=== PATIENT | male | born 1965 | race Caucasian/White ===

== ENCOUNTER 2019-07-27 07:40 | Inpatient (IN) | payer OTHER ==
[2019-07-23 10:49] LABS: BASOPHILS # (AUTO) 0.1 X10'3 (0-0.2); BASOPHILS % (AUTO) 0.8 % (0-1); EOSINOPHILS # (AUTO) 0.1 X10'3 (0-0.9); EOSINOPHILS % (AUTO) 1.4 % (0-6); LYMPHOCYTES # (AUTO) 2.3 X10'3 (1.1-4.8); LYMPHOCYTES % (AUTO) 30.3 % (21-51); MEAN CORPUSCULAR HEMOGLOBIN 30.1 PG (27.0-31.0); MEAN CORPUSCULAR HGB CONC 34.8 g/dL (33.0-36.5); MEAN CORPUSCULAR VOLUME 86.6 FL (78-98); MEAN PLATELET VOLUME 7.6 FL (7.4-10.4); MONOCYTES # (AUTO) 0.6 X10'3 (0-0.9); MONOCYTES % (AUTO) 7.9 % (2-12); NEUTROPHILS # (AUTO) 4.5 X10'3 (1.8-7.7); NEUTROPHILS % (AUTO) 59.6 % (42-75); PRE OP HEMATOCRIT 44.3 % (42.0-52.0); PRE OP HEMOGLOBIN 15.4 g/dL (14.0-17.9); PRE OP PLATELET COUNT 208 X10'3 (140-440); RED BLOOD COUNT 5.12 X10'6 (4.70-6.10); RED CELL DISTRIBUTION WIDTH 13.6 % (11.5-14.5)
[2019-07-23 10:59] LABS: ALBUMIN/GLOBULIN RATIO 1.1 (1.1-1.5); ALKALINE PHOSPHATASE 105 IU/L (46-116); BLOOD UREA NITROGEN 15 MG/DL (7-18); CHLORIDE 106 MMOL/L (99-107); CREATININE 0.79 MG/DL (0.60-1.10); PRE OP ALT 27 U/L (30-65); PRE OP ANION GAP 8 (8-16); PRE OP AST 13 U/L (10-37); PRE OP BILIRUB, TOTAL 0.2 MG/DL (0.0-1.0); PRE OP GLUCOSE 104 MG/DL (70-104); PRE OP POTASSIUM 4.3 MMOL/L (3.4-5.1); PRE OP SODIUM 141 MMOL/L (135-145); TOTAL CARBON DIOXIDE 26.8 MMOL/L (24-32); TOTAL PROTEIN 7.7 G/DL (6.4-8.2); eGFR > 90 ML/MIN
[2019-07-27] VITALS (18 sets, daily range): BP systolic 76–142; BP diastolic 55–87
[~2019-07-27] VITALS: Ht 172.7 cm; Wt 133.6 kg
[~2019-07-27 07:40] MED LIST: DOCUMENT DATE & TIME OF BETA-BLOCKER PO ONE; HYDR-4353 PO; LISI-600 PO; METO-384 PO; VARE0.5T PO; ceFAZolin/D5W- 1GM premix 50 ML IV ONE; cefazolin/dext.iso 2gm/50ml 50 ML IV ONE; famotidine 20mg tablet PO ONE; ringers solution, lacted 1,000 ML IV SCH; tranexamic acid inj. 1,350 MG in normal saline 100ml IV soln 100 ML IV ONE; vancomycin inj 1,500 MG in normal saline 300ml IV soln IV ONE
[2019-07-27] MEDS ORDERED: ringers solution, lacted 1,000 ML IV SCH (10:19)
[2019-07-27] MEDS ORDERED: proCHLORperazine 10 MG/2 ml inj IV PRN (10:20)
[2019-07-27] MEDS ORDERED: morphine 4 MG/ML inj SYRINge IV PRN ×2 (10:20)
[2019-07-27] MEDS ORDERED: meperidine/PF 25mg/ml syringe IV PRN ×3 (10:20)
[2019-07-27] MEDS ORDERED: ondansetron/PF 4mg/2ml inj IV PRN ×2 (10:20→16:20)
[2019-07-27] MEDS ORDERED: ROPIVAcaine 0.5% (5mg/ml) 30ml vial ONE ×2 (10:46→12:26)
[2019-07-27] MEDS ORDERED: ketorolac trometh. 30mg/ml inj. ONE (10:46)
[2019-07-27] MEDS ORDERED: tranexamic acid inj. 1,350 MG in normal saline 100ml IV soln 100 ML IV ONE (11:05)
[2019-07-27] MEDS ORDERED: fentaNYL /PF 50mcg/ml 5ml ampule ONE (11:53)
[2019-07-27] MEDS ORDERED: MIDAZolam 5mg/5ml vial ONE (11:53)
[2019-07-27] MEDS ORDERED: LIDOcaine 1%/PF 5ML 10 MG/ML VIAL ONE ×5 (11:54→17:36)
[2019-07-27] MEDS ORDERED: propofol inj 20 ML IV ONE (11:54)
[2019-07-27] MEDS ORDERED: dexamethasone sod phosphate 4mg/ml inj. ONE (13:29)
[2019-07-27] MEDS ORDERED: rocuronium 10mg/ml inj IV ONE (13:30)
[2019-07-27] MEDS ORDERED: ondansetron/PF 4mg/2ml inj ONE (13:30)
[2019-07-27] MEDS: ROPIVAcaine 0.2%/PF PAIN PUMP 550 ML INTERSCALE SCH ×2 (15:54→18:53)
--- NOTE | 2019-07-27 16:01 | NUR ---
ON [place] IS BEING INFUSED A PAIN BLOCK AND NOT AN IVF INFUSION JUST TO CLARIFY THE PHARMACY DOCUMENTATION ON EMAR SHOULD STATE ITS A PAIN BLOCK NOT IVF
[2019-07-27] MEDS ORDERED: bisacodyl 10mg suppository rectal RC PRN (16:20)
[2019-07-27] MEDS ORDERED: HYDROmorphone inj. 0.5 MG/0.5 ML DISP.SYRIN IV PRN (16:20)
[2019-07-27] MEDS ORDERED: magnesium hydroxide 30ml (MOM) UD suspension PO PRN (16:20)
[2019-07-27] MEDS ORDERED: oxyCODONE IR 5mg (immed. release) tablet PO PRN (16:20)
[2019-07-27] MEDS ORDERED: diphenhydrAMINE 25mg capsule PO PRN ×2 (16:20)
[2019-07-27] MEDS ORDERED: HYDROmorphone 1 mg/ml syringe IV PRN (16:20)
[2019-07-27] MEDS ORDERED: acetaminophen 325mg tablet PO PRN (16:20)
[2019-07-27] MEDS ORDERED: acetaminophen 1,000mg/100ml IV 100 ML IV ONE (16:35)
--- NOTE | 2019-07-27 16:47 | NUR ---
report received from Vinod in recovery
--- NOTE | 2019-07-27 16:50 | NUR ---
PATIENT A&OX4, DENIES PAIN, V/S WNL, NEUROVASCULAR CHECKS INTACT, 18G PIV LUE, SCD ON, DRESSING TO RIGHT SHOULDER CDI ELEVATED WITH ICEBAG APPLIED AND SLING ON. . PATIENT TAKEN TO ORTHO WITH ALL BELONGINGS AND HOOKED UP TO MONITORS IN ROOM AND REPORT GIVEN TO RN WHO HAS TAKEN OVER PATIENT CARE.
--- NOTE | 2019-07-27 18:25 | NUR ---
Problems reprioritized. Patient report given, questions answered & plan of care reviewed with Josie GONZALEZ.
[2019-07-27] MEDS: oxyCODONE IR 5mg (immed. release) tablet PO PRN (18:38)
[2019-07-27] MEDS ORDERED: TRANEXAMIC ACID IV ONE (19:20)
[2019-07-27] MEDS ORDERED: NORMAL SALINE IV ONE (19:20)
[2019-07-27] MEDS ORDERED: vancomycin/NS 1 GM ADD-VANTAGE 250 ML IV SCH (20:00)
[2019-07-27] MEDS: potassium cl 20mEq in 1/2 NS 1,000 ML IV SCH (20:38)
[2019-07-27] MEDS: varenicline tartrate 0.5mg tablet PO SCH (20:40)
[2019-07-27] MEDS: acetaminophen 325mg tablet PO SCH (20:41)
[2019-07-27] MEDS: sennosides 8.6mg tablet PO SCH (20:42)
[2019-07-28] MEDS: ceFAZolin 1GM/D5W- ADD-VANTAGE 50 ML IV SCH ×2 (00:25→08:05)
[2019-07-28] MEDS: oxyCODONE IR 5mg (immed. release) tablet PO PRN ×4 (00:27→20:52)
[2019-07-28] MEDS: acetaminophen 325mg tablet PO SCH ×4 (01:18→20:52)
[2019-07-28 02:00] VITALS: BP 136/75
[2019-07-28] MEDS ORDERED: metoprolol succinate 25mg (24-HOUR) SR. Tablet PO ONE (05:35)
[2019-07-28] MEDS ORDERED: diazepam inj 5 MG/ML inj. IV ONE (05:55)
[2019-07-28] MEDS: potassium cl 20mEq in 1/2 NS 1,000 ML IV SCH ×2 (05:58→08:18)
[2019-07-28 06:00] VITALS: BP 143/81
[2019-07-28 06:04] LABS: BASOPHILS % (AUTO) 0.3 % (0-1); EOSINOPHILS % (AUTO) 0 % (0-6); HEMATOCRIT 39.4 % (42.0-52.0); HEMOGLOBIN 13.7 g/dl (14.0-17.9); LYMPHOCYTES % (AUTO) 7.2 % (21-51); MEAN CORPUSCULAR HEMOGLOBIN 30.1 PG (27.0-31.0); MEAN CORPUSCULAR HGB CONC 34.8 g/dL (33.0-36.5); MEAN CORPUSCULAR VOLUME 86.3 FL (78-98); MEAN PLATELET VOLUME 7.3 FL (7.4-10.4); MONOCYTES # (AUTO) 0.7 X10'3 (0-0.9); MONOCYTES % (AUTO) 4.9 % (2-12); NEUTROPHILS # (AUTO) 12.3 X10'3 (1.8-7.7); NEUTROPHILS % (AUTO) 87.6 % (42-75); PLATELET COUNT 223 X10'3 (140-440); RED BLOOD COUNT 4.56 X10'6 (4.70-6.10); RED CELL DISTRIBUTION WIDTH 13.9 % (11.5-14.5)
[2019-07-28] MEDS: metoprolol succinate 25mg (24-HOUR) SR. Tablet PO SCH (06:25)
--- NOTE | 2019-07-28 06:31 | NUR ---
Problems reprioritized. Patient report given, questions answered & plan of care reviewed with LISA SUE.
[2019-07-28 06:48] LABS: ANION GAP 10 (8-16); CHLORIDE 105 MMOL/L (99-107); POTASSIUM 4.1 MMOL/L (3.5-5.1); SODIUM 139 MMOL/L (135-145); TOTAL CARBON DIOXIDE 23.6 MMOL/L (24-32)
[2019-07-28] MEDS: lisinopril 20mg tablet PO SCH (07:58)
[2019-07-28] MEDS: varenicline tartrate 0.5mg tablet PO SCH ×2 (08:05→20:51)
[2019-07-28] MEDS ORDERED: aspirin 325mg tablet PO SCH (08:30)
[2019-07-28 10:00] VITALS: BP 134/79
--- NOTE | 2019-07-28 11:44 | NUR ---
Joint replacement consult: Pt/family seen by JOSE for written/verbal high protein ed w/ RD contact information provided. Pt agrees to double proteins TIDWM; dietary notified. Pt endorses good appetite w/ some gas currently. LBM 07/26. Will continue to monitor. Addendum: 07/28/19 at [address] Amended: Links added.
--- NOTE | 2019-07-28 11:49 | NUR ---
Student documentation: I have reviewed all interventions, assessments performed and [facility] Medication Administration: For this medication-pass time frame, all medication were reviewed, dispensed, administered and documented per hospital policy [facility].
[2019-07-28 14:00] VITALS: BP 144/79
[2019-07-28] MEDS ORDERED: bisacodyl 5mg tablet.DR PO PRN (16:30)
[2019-07-28 18:00] VITALS: BP 165/83
--- NOTE | 2019-07-28 18:13 | NUR ---
Problems reprioritized. Patient report given, questions answered & plan of care reviewed with Josie GONZALEZ.
--- NOTE | 2019-07-28 18:22 | NUR ---
Patient in room ORTHO 4024. I have received report from LISA SUE and had the opportunity to ask questions and assume patient care.
[2019-07-28] MEDS: sennosides 8.6mg tablet PO SCH (21:00)
[2019-07-28 22:10] VITALS: BP 128/70
--- NOTE | 2019-07-29 01:06 | NUR ---
PT REFUSED PAIN MED AND SCHEDULED TYLENOL
[2019-07-29] MEDS: acetaminophen 325mg tablet PO SCH ×2 (02:00→07:55)
[2019-07-29] MEDS: oxyCODONE IR 5mg (immed. release) tablet PO PRN ×2 (04:23→08:46)
[2019-07-29] MEDS: ROPIVAcaine 0.2%/PF PAIN PUMP 550 ML INTERSCALE SCH ×2 (04:24→09:01)
[2019-07-29 05:43] LABS: BASOPHILS # (AUTO) 0.1 X10'3 (0-0.2); BASOPHILS % (AUTO) 0.7 % (0-1); EOSINOPHILS # (AUTO) 0.1 X10'3 (0-0.9); EOSINOPHILS % (AUTO) 0.6 % (0-6); HEMATOCRIT 41.3 % (42.0-52.0); HEMOGLOBIN 14.2 g/dl (14.0-17.9); LYMPHOCYTES # (AUTO) 3.2 X10'3 (1.1-4.8); LYMPHOCYTES % (AUTO) 26.4 % (21-51); MEAN CORPUSCULAR HGB CONC 34.3 g/dL (33.0-36.5); MEAN CORPUSCULAR VOLUME 87.5 FL (78-98); MEAN PLATELET VOLUME 7.6 FL (7.4-10.4); MONOCYTES # (AUTO) 0.9 X10'3 (0-0.9); MONOCYTES % (AUTO) 7.1 % (2-12); NEUTROPHILS # (AUTO) 7.9 X10'3 (1.8-7.7); NEUTROPHILS % (AUTO) 65.2 % (42-75); PLATELET COUNT 213 X10'3 (140-440); RED BLOOD COUNT 4.72 X10'6 (4.70-6.10); RED CELL DISTRIBUTION WIDTH 13.8 % (11.5-14.5); WHITE BLOOD COUNT 12.1 X10'3 (4.5-11.0)
[2019-07-29 06:00] VITALS: BP 150/90
--- NOTE | 2019-07-29 06:21 | NUR ---
Problems reprioritized. Patient report given, questions answered & plan of care reviewed with LISA SUE.
--- NOTE | 2019-07-29 06:36 | NUR ---
Patient in room ORTHO 4024. I have received report from Josie GONZALEZ and had the opportunity to ask questions and assume patient care.
[2019-07-29] MEDS: lisinopril 20mg tablet PO SCH (07:55)
[2019-07-29] MEDS: metoprolol succinate 25mg (24-HOUR) SR. Tablet PO SCH (07:55)
[2019-07-29] MEDS: varenicline tartrate 0.5mg tablet PO SCH (07:55)
[2019-07-29 09:25] VITALS: BP 127/79
[2019-07-29] MEDS ORDERED: acetaminophen 325mg tablet PO PRN (16:20)
== END 2019-07-29 09:30 | disposition home or self-care (01) | DRG 483 ==
LOC: PAS IN 07:40 → EDSTATUS 11:00 → ORTHO 4S 16:50
PROVIDERS: ADMIT Orthopaedic Surgery; ATTEND Orthopaedic Surgery
PROC: 0LS30ZZ Reposition Right Upper Arm Tendon, Open Approach (ICD-10-PCS; 2019-07-27)
PROC: 3E0T3BZ Introduction of Anesthetic Agent into Peripheral Nerves and Plexi, Percutaneous Approach (ICD-10-PCS; 2019-07-27)
PROC: 0RRJ0JZ Replacement of Right Shoulder Joint with Synthetic Substitute, Open Approach (ICD-10-PCS; principal; 2019-07-27 12:27)
DX: M19.011 Primary osteoarthritis, right shoulder (principal); D62 Acute posthemorrhagic anemia; Z68.41 Body mass index [BMI] 40.0-44.9, adult; M75.111 Incomplete rotator cuff tear or rupture of right shoulder, not specified as traumatic; G89.29 Other chronic pain; I10 Essential (primary) hypertension; J44.9 Chronic obstructive pulmonary disease, unspecified; K21.9 Gastro-esophageal reflux disease without esophagitis; E66.01 Morbid (severe) obesity due to excess calories; M25.711 Osteophyte, right shoulder; M62.830 Muscle spasm of back; F41.9 Anxiety disorder, unspecified; M65.811 Other synovitis and tenosynovitis, right shoulder; Z88.6 Allergy status to analgesic agent; Z79.899 Other long term (current) drug therapy; Z90.49 Acquired absence of other specified parts of digestive tract
CPT/HCPCS: Z7506; Z7508; 36415; 80051; 80053; 82948; 84484; 85025; 87081; 93005; 97110; 97161; 97530; 97535; A4618; A7000; C1713; C1776; G0378; J0131; J0690; J1100; J1170; J1885; J2250; J2405; J2704; J2795; J3010; J3360; J3370; J3480; J7120; Q0163

== ENCOUNTER 2020-05-09 05:24 | Day surgery (SDC) | payer MEDICARE, MEDICAID ==
[2020-05-02 12:41] LABS: BASOPHILS % (AUTO) 0.7 % (0-1); EOSINOPHILS # (AUTO) 0.1 X10'3 (0-0.9); LYMPHOCYTES # (AUTO) 1.8 X10'3 (1.1-4.8); MEAN PLATELET VOLUME 7.4 FL (7.4-10.4); PRE OP HEMOGLOBIN 13.2 g/dL (14.0-17.9)
[2020-05-02 12:43] LABS: EOSINOPHILS % (AUTO) 1.6 % (0-6); LYMPHOCYTES % (AUTO) 25.7 % (21-51); MEAN CORPUSCULAR HEMOGLOBIN 28.1 PG (27.0-31.0); MEAN CORPUSCULAR HGB CONC 33.2 g/dL (33.0-36.5); MEAN CORPUSCULAR VOLUME 84.4 FL (78-98); MONOCYTES # (AUTO) 0.6 X10'3 (0-0.9); NEUTROPHILS # (AUTO) 4.4 X10'3 (1.8-7.7); PRE OP HEMATOCRIT 39.7 % (42.0-52.0); PRE OP PLATELET COUNT 232 X10'3 (140-440)
[2020-05-02 12:58] LABS: ALBUMIN 3.8 G/DL (3.4-5.0); ALBUMIN/GLOBULIN RATIO 0.9 (1.1-1.5); ALKALINE PHOSPHATASE 76 IU/L (46-116); BLOOD UREA NITROGEN 14 MG/DL (7-18); BUN/CREATININE RATIO 18.4 (5.4-32.0); CALCIUM 8.6 MG/DL (8.5-10.1); CHLORIDE 108 MMOL/L (99-107); CREATININE 0.76 MG/DL (0.60-1.10); PRE OP ALT 31 U/L (30-65); PRE OP ANION GAP 9 (8-16); PRE OP AST 16 U/L (10-37); PRE OP BILIRUB, TOTAL 0.3 MG/DL (0.0-1.0); PRE OP GLUCOSE 106 MG/DL (70-104); PRE OP POTASSIUM 3.9 MMOL/L (3.4-5.1); PRE OP SODIUM 142 MMOL/L (135-145); TOTAL CARBON DIOXIDE 24.9 MMOL/L (24-32); TOTAL PROTEIN 7.9 G/DL (6.4-8.2); eGFR > 90 ML/MIN
[2020-05-09] VITALS (7 sets, daily range): BP systolic 105–157; BP diastolic 61–91
[~2020-05-09] VITALS: Ht 177.8 cm; Wt 145.2 kg
[~2020-05-09 05:24] MED LIST changes: -DOCUMENT DATE & TIME OF BETA-BLOCKER PO ONE; -VARE0.5T PO; -ceFAZolin/D5W- 1GM premix 50 ML IV ONE; -cefazolin/dext.iso 2gm/50ml 50 ML IV ONE; -famotidine 20mg tablet PO ONE; -ringers solution, lacted 1,000 ML IV SCH; -tranexamic acid inj. 1,350 MG in normal saline 100ml IV soln 100 ML IV ONE; -vancomycin inj 1,500 MG in normal saline 300ml IV soln IV ONE
[2020-05-09] MEDS ORDERED: famotidine 20mg tablet PO ONE (05:30)
[2020-05-09] MEDS ORDERED: DOCUMENT DATE & TIME OF BETA-BLOCKER PO ONE (05:30)
[2020-05-09] MEDS ORDERED: vancomycin 1,500 MG in NS 300ml IV soln IV ONE (05:30)
[2020-05-09] MEDS ORDERED: ceFAZolin 2gm in dextrose, iso 50 ML IV ONE (05:30)
[2020-05-09] MEDS ORDERED: LIDOcaine 1% (10mg/ml) 2ml vial ONE (05:50)
[2020-05-09] MEDS ORDERED: ringers solution, lacted 1,000 ML IV SCH ×2 (06:05→07:09)
[2020-05-09] MEDS ORDERED: BUPIVAcaine 0.5% inj/PF 60 ML ONE (06:46)
[2020-05-09] MEDS ORDERED: ketorolac trometh. 30mg/ml inj. ONE (06:46)
[2020-05-09] MEDS ORDERED: LIDOcaine 1% 30ml preserv. free vial ONE (06:46)
[2020-05-09] MEDS ORDERED: LIDOcaine 1% w/epiNEPHrine 1:200,000 30ml vial ONE (06:46)
[2020-05-09] MEDS ORDERED: acetaminophen 1,000mg/100ml IV 100 ML IV PRN (07:10)
[2020-05-09] MEDS ORDERED: proCHLORperazine 10 MG/2 ml inj IV PRN (07:10)
[2020-05-09] MEDS ORDERED: morphine 4 MG/ML inj SYRINge IV PRN (07:10)
[2020-05-09] MEDS ORDERED: ondansetron/PF 4mg/2ml inj IV PRN (07:10)
[2020-05-09] MEDS ORDERED: morphine 2 MG/ML inj. syringe IV PRN (07:10)
[2020-05-09] MEDS ORDERED: meperidine/PF 25mg/ml syringe IV PRN ×3 (07:10)
[2020-05-09] MEDS ORDERED: midazolam 2 mg/2 ml injection ONE (07:17)
[2020-05-09] MEDS ORDERED: fentaNYL/PF 50MCG/1 ML 2ML syringe ONE (07:39)
[2020-05-09] MEDS ORDERED: ceFAZolin 1000mg inj ONE (07:39)
[2020-05-09] MEDS ORDERED: BUPIVAcaine 0.5% inj/PF 30 ml vial IJ ONE (07:50)
[2020-05-09] MEDS ORDERED: propofol inj 20 ML IV ONE (08:11)
--- NOTE | 2020-05-09 08:15 | NUR ---
Received from OR via [facility], accompanied by Anesthesiologist DR OREILLY and report given by Anesthesiologist. PT AWAKE, DENIES PAIN, RIGHT KNEE W/GERARDO WRAP COVERING INCISION/DRSG CDI. Addendum: 05/09/20 at 0828 by Susie Portillo RN Amended: Links added.
[2020-05-09] MEDS ORDERED: HYDROcodone/acetaminophen 10/325mg tab PO PRN (08:45)
--- NOTE | 2020-05-09 09:35 | NUR ---
D/C INSTRUCTIONS GIVEN AND GONE OVER W/PT WHO VERBALIZED UNDERSTANDING, PT UP ABLE TO AMBULATE TO BATHROOM FOR VOID, PT D/CD TO HOME VIA W/C TO PRIVATE VEHICLE W/O INCIDENT. Addendum: 05/09/20 at 0955 by Susie Portillo RN Amended: Links added.
== END 2020-05-09 09:35 | disposition home or self-care (01) ==
LOC: PAS 05:24
PROVIDERS: ATTEND Orthopaedic Surgery
DX: S83.231A Complex tear of medial meniscus, current injury, right knee, initial encounter (principal); M17.11 Unilateral primary osteoarthritis, right knee; M94.261 Chondromalacia, right knee; G47.33 Obstructive sleep apnea (adult) (pediatric); I10 Essential (primary) hypertension; M19.012 Primary osteoarthritis, left shoulder; K21.9 Gastro-esophageal reflux disease without esophagitis; E66.01 Morbid (severe) obesity due to excess calories; Z68.42 Body mass index [BMI] 45.0-49.9, adult; Z87.891 Personal history of nicotine dependence; Z79.899 Other long term (current) drug therapy; Z88.8 Allergy status to other drugs, medicaments and biological substances; Z96.611 Presence of right artificial shoulder joint; Z98.890 Other specified postprocedural states; Z72.89 Other problems related to lifestyle; Z11.59 Encounter for screening for other viral diseases
CPT/HCPCS: 29881; 36415; 71046; 80053; 82948; 85025; 87635; J0690; J1885; J2001; J2250; J2704; J3010; J3370; J7040; J7120; A4215; A4618; A6449; A7000

== ENCOUNTER 2021-03-19 08:06 | Day surgery (SDC) | payer MEDICARE, MEDICAID ==
[~2021-03-19] VITALS: Ht 172.7 cm; Wt 150.0 kg
[~2021-03-19 08:06] MED LIST changes: +BACL10TA2 PO; +CYCL-1 PO; +FURO40TA4 PO; -LISI-600 PO; +LISI20TA28 PO; +MELO-100 PO; +POTA-82 PO
[2021-03-19 08:25] VITALS: BP 129/75
[2021-03-19] MEDS ORDERED: MIDAZolam 1 MG/ML 5ML VIAL ONE (08:50)
[2021-03-19] MEDS ORDERED: fentaNYL/PF 50MCG/1 ML 2ML syringe ONE (08:50)
[2021-03-19 09:51] VITALS: BP 123/86
[2021-03-19 10:01] VITALS: BP 128/69
[2021-03-19 10:11] VITALS: BP 133/87
== END 2021-03-19 10:35 | disposition home or self-care (01) ==
LOC: GI LAB 08:06
PROVIDERS: ATTEND Internal Medicine Gastroenterology
DX: Z12.11 Encounter for screening for malignant neoplasm of colon (principal); D12.3 Benign neoplasm of transverse colon; K62.1 Rectal polyp; K57.30 Diverticulosis of large intestine without perforation or abscess without bleeding; K64.8 Other hemorrhoids; K63.89 Other specified diseases of intestine; E66.01 Morbid (severe) obesity due to excess calories; Z68.43 Body mass index [BMI] 50.0-59.9, adult; Z86.010 Personal history of colon polyps; Z79.899 Other long term (current) drug therapy
CPT/HCPCS: 45380; 45385; 99153; C1773; G0500; J2250; J3010; J7040; 99152; A4620